=== PATIENT | female | born 1945 | race Caucasian/White ===

== ENCOUNTER → 2020-05-15 | Outpatient (REF) | payer MEDICARE ==
[~2020-05-15] MED LIST: CALC-190 PO; CRAN200C PO; MULT1TAB10 PO
== END ==
LOC: M LAB REF 11:55
PROVIDERS: ATTEND Physician Assistant
DX: R30.0 Dysuria (principal)

== ENCOUNTER → 2021-03-26 | Outpatient (REF) | payer MEDICARE ==
[2021-03-27 18:15] LABS: URIC ACID 3.1 MG/DL (2.6-6.0)
== END ==
LOC: M LAB REF 17:17
PROVIDERS: ATTEND Internal Medicine
DX: E87.1 Hypo-osmolality and hyponatremia (principal)

== ENCOUNTER → 2021-03-27 | Outpatient (REF) | payer MEDICARE ==
[2021-03-27 12:42] LABS: CREATININE,RANDOM URINE 17.8 MG/DL
== END ==
LOC: M LAB REF 11:15
PROVIDERS: ATTEND Internal Medicine
DX: E78.00 Pure hypercholesterolemia, unspecified (principal); N39.0 Urinary tract infection, site not specified

== ENCOUNTER → 2021-04-22 | Outpatient (CLI) | payer MEDICARE | LOC: M WHC 10:16 | PROVIDERS: ATTEND Internal Medicine | DX: Z12.31 Encounter for screening mammogram for malignant neoplasm of breast (principal); M85.851 Other specified disorders of bone density and structure, right thigh; M85.852 Other specified disorders of bone density and structure, left thigh ==

== ENCOUNTER → 2021-04-28 | Outpatient (CLI) | payer MEDICARE | LOC: M WUC 10:41 | PROVIDERS: ATTEND Internal Medicine | DX: R03.0 Elevated blood-pressure reading, without diagnosis of hypertension (principal); E87.1 Hypo-osmolality and hyponatremia ==

== ENCOUNTER → 2023-04-10 | Outpatient (REF) | payer MEDICARE | LOC: M WUC 18:29 | PROVIDERS: ATTEND Physician Assistant Medical | DX: N39.0 Urinary tract infection, site not specified (principal) ==

== ENCOUNTER → 2024-05-01 | Outpatient (REF) | payer MEDICARE | LOC: M LAB REF 16:06 | PROVIDERS: ATTEND Nurse Practitioner Family | DX: N30.90 Cystitis, unspecified without hematuria (principal) ==

== ENCOUNTER → 2025-04-09 | Outpatient (CLI) | payer MEDICARE, OTHER | LOC: M WUC 15:34 | PROVIDERS: ATTEND Physician Assistant Medical | DX: M54.50 Low back pain, unspecified (principal); M48.54XA Collapsed vertebra, not elsewhere classified, thoracic region, initial encounter for fracture; M48.56XA Collapsed vertebra, not elsewhere classified, lumbar region, initial encounter for fracture; M47.816 Spondylosis without myelopathy or radiculopathy, lumbar region ==

== ENCOUNTER → 2025-05-09 | Outpatient (CLI) | payer MEDICARE | LOC: M PLAIMG 11:35 | PROVIDERS: ATTEND Physician Assistant | DX: S32.020A Wedge compression fracture of second lumbar vertebra, initial encounter for closed fracture (principal); S32.030A Wedge compression fracture of third lumbar vertebra, initial encounter for closed fracture; S22.080A Wedge compression fracture of T11-T12 vertebra, initial encounter for closed fracture; M51.26 Other intervertebral disc displacement, lumbar region; M43.16 Spondylolisthesis, lumbar region; M48.061 Spinal stenosis, lumbar region without neurogenic claudication ==